=== PATIENT | female | born 1965 | race Caucasian/White ===

== ENCOUNTER 2022-03-03 20:47 | Emergency (ER) | payer OTHER ==
[~2022-03-03] VITALS: Ht 167.6 cm; Wt 91.0 kg
[2022-03-03 22:38] LABS: Basophils # (auto) 0 10 ^3/uL (0-0.2); Basophils % (auto) 0.4 % (0.0-2.0); Eosinophils # (auto) 0 10 ^3/uL (0-0.8); Hematocrit 44.9 % (36.0-46.0); Hemoglobin 14.3 g/dL (12.2-16.2); Lymphocytes # (auto) 1.2 10 ^3/uL (0.4-5.4); Lymphocytes % (auto) 18.8 % (10.0-50.0); Mean Corpuscular Hemoglobin 29.2 pg (28.0-32.0); Mean Corpuscular Hgb Conc. 31.9 g/dL (32.0-36.0); Mean Corpuscular Volume 91.4 fL (80.0-100.0); Monocytes # (auto) 0.1 10 ^3/uL (0-1.3); Monocytes % (auto) 2.2 % (0.0-12.0); Neutrophils % (auto) 78.6 % (37.0-80.0); Nucleated Red Blood Cells % 0.1 %; Red Blood Cells 4.91 10^6/uL (4.0-5.20); Red Cell Distribution Width 13.7 % (11.8-14.3); White Blood Cell 6.4 10^3/uL (4.4-10.8)
[2022-03-03 22:54] LABS: INR 0.95 (0.9-1.15); Partial Thromboplastin Time 25.4 sec (24.6-33.4)
[2022-03-04 00:14] LABS: Albumin 4.2 g/dL (3.4-5.0); BUN/Creatinine Ratio 7.2; Calcium 9.9 mg/dL (8.5-10.1); Magnesium 1.8 mg/dL (1.6-2.6)
[2022-03-04 00:21] LABS: Bilirubin, Total 0.4 mg/dL (0.2-1.0)
[2022-03-04] MEDS ORDERED: ONDANSETRON HCL 4 MG/2 ML VIAL IV ONE (01:45)
[2022-03-04] MEDS ORDERED: SODIUM CHLORIDE 0.9% 1,000 ML IV ONE (01:45)
[2022-03-04] MEDS ORDERED: MORPHINE SULFATE INJ 2 MG/ml SYRG IV ONE (01:45)
[2022-03-04] MEDS ORDERED: OXYCODONE W/ ACETAMINOPHEN 5/325MG TABLET PO ONE (01:45)
[2022-03-04 02:35] VITALS: BP 122/72
[2022-03-04] MEDS ORDERED: CIPR-173 PO (03:29)
[2022-03-04] MEDS ORDERED: PERCOT PO (03:29)
[2022-03-04] MEDS ORDERED: METR500T PO (03:29)
[2022-03-04] MEDS ORDERED: ONDA-144 PO (03:29)
== END 2022-03-04 03:46 | disposition home or self-care (01) ==
LOC: ER 20:47 → EDBD 20:47 → ER 03-04 03:30
DX: K52.9 Noninfective gastroenteritis and colitis, unspecified (principal)
CPT/HCPCS: 36415; 71045; 74176; 80053; 83735; 83880; 84484; 85025; 85610; 85730; 96361; 96374; 96375; 99285; J2270; J2405; J7030